=== PATIENT | male | born 1970 | race Caucasian/White ===

== ENCOUNTER 2020-08-26 16:26 | Emergency (ER) | payer OTHER ==
[~2020-08-26] VITALS: Ht 190.5 cm; Wt 68.0 kg
== END 2020-08-26 20:22 | disposition home or self-care (01) ==
LOC: ER 16:26
DX: M70.51 Other bursitis of knee, right knee (principal); L03.115 Cellulitis of right lower limb; F17.200 Nicotine dependence, unspecified, uncomplicated
CPT/HCPCS: 73562-RT; 99283-25; A9270-GY